=== PATIENT | female | born 1945 | race Caucasian/White ===

== ENCOUNTER 2020-01-21 17:31 | Emergency (ER) | payer MEDICARE, MEDICAID ==
[2020-01-21 17:45] VITALS: BP 175/87; PULSE 113
--- NOTE | 2020-01-21 18:06 | EDM.PDOC ---
ED HPI GENERAL MEDICAL PROBLEM - General Chief Complaint: Respiratory Problem Stated Complaint: WATER AROUND OR LIQUID IN THE RIGHT LUNG Time Seen by Provider: 01/21/20 17:50 Source of Information: Reports: Patient History Limitations: Reports: No Limitations - History of Present Illness INITIAL COMMENTS - FREE TEXT/NARRATIVE: This 74 yo female patient was sent to the ED from the Clinic. The patient reports she was advised to come to the ED from her provider. The provider did not call the ED with a report. The patient reports she has had increased difficulties breathing over the past month, but the past week her breathing has gotten much worse. Review of the patient's x-ray reveals opacification of the right lower lower lobe. The patient reports she has been a long time smoker and is currently trying to quit smoking. Onset: Unknown/Unsure Duration: Week(s):, Constant, Getting Worse Location: Reports: Chest Quality: Reports: Other Severity: Moderate Improves with: Reports: Rest Worsens with: Reports: Movement Associated Symptoms: Reports: Shortness of Breath Right Pain Score (Numeric/FACES): 8 - Related Data Allergies Allergy/AdvReac Type Severity Reaction Status Date / Time No Known Allergies Allergy Verified 01/21/20 17:45 Home Meds: Home Meds Amitriptyline [Elavil] 25 mg PO BEDTIME 04/09/14 [History] Gabapentin [Neurontin] 300 mg PO BEDTIME 12/23/17 [History] Melatonin 10 mg PO BEDTIME 12/23/17 [History] Acetaminophen [Tylenol Extra Strength] 650 mg PO BID 12/31/18 [History] Cholecalciferol (Vitamin D3) [Vitamin D3] 3,000 units PO DAILY 12/31/18 [History ] Esomeprazole Magnesium [Nexium] 20 mg PO DAILY 12/31/18 [History] Fluticasone/Vilanterol [Breo Ellipta 100-25 MCG Inhalation Kit] 1 puff INH DAILY 12/31/18 [History] Gabapentin [Neurontin] 100 mg PO BEDTIME 12/31/18 [History] Glycopyrrolate/Formoterol Fum [Bevespi Aerosphere Inhaler] 2 puff INH BID [History] Ipratropium/Albuterol Sulfate [Iprat-Albut 0.5-3(2.5) mg/3 ml] 3 ml INH Q4H PRN 12/31/18 [History] Naproxen Sodium [Aleve] 200 mg PO BID 01/21/20 [History] Past Medical History HEENT History: Reports: None Cardiovascular History: Reports: None Respiratory History: Reports: COPD Gastrointestinal History: Reports: GERD Genitourinary History: Reports: None [employer]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 SHE STATES HER RIBS EASILY DISPLACE EASILY DUE TO HER CONDITION Neurological History: Reports: None Psychiatric History: Reports: Anxiety, Panic Attack, Other (See Below) Other Psychiatric History: insomnia Endocrine/Metabolic History: Reports: None Hematologic History: Reports: None Immunologic History: Reports: None Oncologic (Cancer) History: Reports: None Dermatologic History: Reports: Psoriasis - Infectious Disease History Infectious Disease History: Reports: Chicken Pox, Measles, Mumps, Shingles - Past Surgical History HEENT Surgical History: Reports: Cataract Surgery, Tonsillectomy Cardiovascular Surgical History: Reports: Carotid Endarterectomy, Other (See Below) Other Cardiovascular Surgeries/Procedures: Left heart cath. Cardiac stress test GI Surgical History: Reports: Appendectomy, Hernia Repair/Other Female Surgical History: Reports: Section, Tubal Ligation Musculoskeletal Surgical History: Reports: Hip Replacement Social & Family History - Family History Cardiac: Reports: Hypertension Musculoskeletal: Reports: Arthritis Neurological: Reports: CVA Psychiatric: Reports: Other (See Below) Other Psychiatric Family History: Alzheimers Endocrine/Metabolic: Reports: Diabetes, type II, Osteoporosis - Tobacco Use Smoking Status *Q: Current Every Day Smoker Years of Tobacco use: 50 Packs/Tins Daily: 0.5 Second Hand Smoke Exposure: No - Caffeine Use Caffeine Use: Reports: Tea Caffeine Use Comment: 12 cups daily - Recreational Drug Use Recreational Drug Use: No ED ROS GENERAL - Review of Systems Review Of Systems: Comprehensive ROS is negative, except as noted in HPI. ED EXAM, GENERAL - Physical Exam Exam: See Below Exam Limited By: No Limitations General Appearance: Alert, WD/WN, Moderate Distress, Thin Eye Exam: Bilateral Eye: EOMI, Normal Inspection, PERRL Ears: Normal External Exam, Normal Canal, Hearing Grossly Normal, Normal TMs Nose: Normal Inspection, Normal Mucosa, No Blood Throat/Mouth: Normal Inspection, Normal Lips, Normal Teeth, Normal Gums, Normal Oropharynx, Normal Voice, No Airway Compromise Head: Atraumatic, Normocephalic Neck: Normal Inspection, Supple, Non-Tender, Full Range of Motion Respiratory/Chest: Chest Non-Tender, Decreased Breath Sounds (right lower lobe) Cardiovascular: Normal Peripheral Pulses, Regular Rate, Rhythm, No Edema, No Gallop, No JVD, No Murmur, No Rub GI/Abdominal: Normal Bowel Sounds, Soft, Non-Tender, No Organomegaly, No Distention, No Abnormal Bruit, No Mass (Female) Exam: Deferred Rectal (Female) Exam: Deferred Back Exam: Normal Inspection, Full Range of Motion, NT Extremities: Normal Inspection, Normal Range of Motion, Non-Tender, Normal Capillary Refill, No Pedal Edema Neurological: Alert, Oriented, CN II-XII Intact, Normal Cognition, Normal Gait, Normal Reflexes, No Motor/Sensory Deficits Psychiatric: Normal Affect, Normal Mood Skin Exam: Warm, Dry, Intact, Normal Color, No Rash Lymphatic: No Adenopathy Course - Vital Signs Last Recorded V/S: Last Vital Signs Temp 36.6 C 01/21/20 17:38 Pulse 113 H 01/21/20 17:38 Resp 20 01/21/20 17:38 BP 175/87 H 01/21/20 17:38 Pulse Ox 97 01/21/20 17:38 - Orders/Labs/Meds Orders: Active Orders 24 hr Category Date Time Status EKG Documentation Completion [RC] URGENT Care 01/21/20 17:49 Active CULTURE BLOOD [BC] Stat Lab 01/21/20 17:56 Received Labs: Laboratory Tests 01/21/20 01/21/20 01/21/20 Range/Units 17:56 17:56 17:56 WBC 10.5 H (5.0-10.0) 10^3/uL RBC 4.76 (4.2-5.4) 10^6/uL Hgb 14.1 D (12.0-16.0) g/dL Hct 42.3 (37.0-47.0) % MCV 88.9 D (80-100) fL MCH 29.6 (27.0-34.0) pg MCHC 33.3 (33.0-35.0) g/dL Plt Count 394 (150-450) 10^3/uL Neut % (Auto) 91.7 H (42.2-75.2) % Lymph % (Auto) 5.5 L (20.5-50.1) % [place] % (Auto) 2.1 (2-8) % Eos % (Auto) 0.4 L (1.0-3.0) % Baso % (Auto) 0.3 (0.0-1.0) % Sodium 135 (135-145) mmol/L Potassium 4.0 (3.6-5.0) mmol/L Chloride 101 (101-111) mmol/L Carbon Dioxide 24.0 (21.0-31.0) mmol/L Anion Gap 14.0 BUN 12 (7-18) mg/dL Creatinine 0.8 (0.6-1.3) mg/dL Est Cr Clr Drug Dosing 40.63 mL/min Estimated GFR (MDRD) > 60 BUN/Creatinine Ratio 15.00 Glucose 136 H (74-105) mg/dL Lactic Acid 1.5 (0.5-2.0) mmol/L Calcium 9.0 (8.4-10.2) mg/dl Total Bilirubin 0.7 (0.2-1.0) mg/dL AST 24 (10-42) IU/L ALT 18 (10-60) IU/L Alkaline Phosphatase 125 H (42-121) IU/L Troponin I 0.02 (0.00-0.02) ng/ml B-Natriuretic Peptide 56 (0-100) pg/ml Total Protein 7.0 (6.7-8.2) g/dl Albumin 4.0 (3.2-5.5) g/dl Globulin 3.0 Albumin/Globulin Ratio 1.33 Meds: Medications Discontinued Medications Generic Name Dose Route Start Last Admin Trade Name Freq PRN Reason Stop Dose Admin Lorazepam 1 mg 01/21/20 19:33 01/21/20 19:41 Ativan IVPUSH 01/21/20 19:34 1 mg ONETIME ONE Administration Departure - Departure Time of Disposition: 19:30 Disposition: DC/Tfer to Acute Hospital 02 Condition: Serious Clinical Impression: Pleural effusion, right - Discharge Information *PRESCRIPTION DRUG MONITORING PROGRAM REVIEWED*: Not Applicable *COPY OF PRESCRIPTION DRUG MONITORING REPORT IN PATIENT DANIELA: Not Applicable Referrals: Sera,Wendi J, PA-C [Primary Care Provider] - Care Plan Goals: Discussed the patient's history, examination, lab and x-ray results with Dr. Vera. Dr. Vera accepted the patient for continued evaluation and management as an inpatient at in [place]. The patient will be transported by [facility]. Sepsis Event Note - Evaluation Sepsis Screening Result: No Definite Risk - Focused Exam Date Exam was Performed: 01/22/20 Time Exam was Performed: 07:02 - My Orders Last 24 Hours: My Active Orders 01/21/20 17:49 EKG Documentation Completion [RC] URGENT 01/21/20 17:56 CULTURE BLOOD [BC] Stat - Assessment/Plan Last 24 Hours: My Active Orders 01/21/20 17:49 EKG Documentation Completion [RC] URGENT 01/21/20 17:56 CULTURE BLOOD [BC] Stat
[2020-01-21 18:22] LABS: CHLORIDE,CL 101 mmol/L (101-111); SODIUM,NA 135 mmol/L (135-145)
[2020-01-21] MEDS ORDERED: LORazepam 2 MG/ML SDV IVPUSH ONE (19:33)
== END 2020-01-21 20:08 ==
LOC: DL.ED 17:31
DX: J90 Pleural effusion, not elsewhere classified (principal); F17.210 Nicotine dependence, cigarettes, uncomplicated; J44.9 Chronic obstructive pulmonary disease, unspecified; K21.9 Gastro-esophageal reflux disease without esophagitis; F41.9 Anxiety disorder, unspecified; Z79.899 Other long term (current) drug therapy
CPT/HCPCS: 36415; 80053; 83605; 83880; 84484; 85025; 87040; 93005; 96374; 99285; J2060

== ENCOUNTER 2020-01-23 15:38 | Emergency (ER) | payer MEDICARE, MEDICAID ==
[2020-01-23] MEDS ORDERED: Acetaminophen/HYDROcodone 325-5 MG Tab PO ONE ×2 (15:39→16:53)
[2020-01-23 16:11] VITALS: BP 164/80; PULSE 102
--- NOTE | 2020-01-23 16:35 | EDM.PDOC ---
ED HPI GENERAL MEDICAL PROBLEM - General Chief Complaint: Respiratory Problem Stated Complaint: TROUBLE BREATHING Time Seen by Provider: 01/23/20 16:00 Source of Information: Reports: Patient History Limitations: Reports: No Limitations - History of Present Illness INITIAL COMMENTS - FREE TEXT/NARRATIVE: ED with c/o right lower anterior chest pain, SOB, Lung drained in [place] yesterday then home. Fine until today then intermitent sharp right chest pain, Daughter concerned no CXR done after procedure. Scheduled follow up with PCP on Saturday and procedure/bx on . Unknown cause of fluid but was told not from bacterial. Right Upper Abdomen Pain Score (Numeric/FACES): 10 - Related Data Allergies Allergy/AdvReac Type Severity Reaction Status Date / Time No Known Allergies Allergy Verified 01/23/20 15:53 Home Meds: Home Meds Amitriptyline [Elavil] 25 mg PO BEDTIME 04/09/14 [History] Gabapentin [Neurontin] 300 mg PO BEDTIME 12/23/17 [History] Melatonin 10 mg PO BEDTIME 12/23/17 [History] Acetaminophen [Tylenol Extra Strength] 650 mg PO BID 12/31/18 [History] Cholecalciferol (Vitamin D3) [Vitamin D3] 3,000 units PO DAILY 12/31/18 [History ] Esomeprazole Magnesium [Nexium] 20 mg PO DAILY 12/31/18 [History] Fluticasone/Vilanterol [Breo Ellipta 100-25 MCG Inhalation Kit] 1 puff INH DAILY 12/31/18 [History] Gabapentin [Neurontin] 100 mg PO BEDTIME 12/31/18 [History] Glycopyrrolate/Formoterol Fum [Bevespi Aerosphere Inhaler] 2 puff INH BID [History] Ipratropium/Albuterol Sulfate [Iprat-Albut 0.5-3(2.5) mg/3 ml] 3 ml INH Q4H PRN 12/31/18 [History] Naproxen Sodium [Aleve] 200 mg PO BID 01/21/20 [History] Past Medical History HEENT History: Reports: None Cardiovascular History: Reports: None Respiratory History: Reports: COPD Gastrointestinal History: Reports: GERD Genitourinary History: Reports: None [employer]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 SHE STATES HER RIBS EASILY DISPLACE EASILY DUE TO HER CONDITION Neurological History: Reports: None Psychiatric History: Reports: Anxiety, Panic Attack, Other (See Below) Other Psychiatric History: insomnia Endocrine/Metabolic History: Reports: None Hematologic History: Reports: None Immunologic History: Reports: None Oncologic (Cancer) History: Reports: None Dermatologic History: Reports: Psoriasis - Infectious Disease History Infectious Disease History: Reports: Chicken Pox, Measles, Mumps, Shingles - Past Surgical History HEENT Surgical History: Reports: Cataract Surgery, Tonsillectomy Cardiovascular Surgical History: Reports: Carotid Endarterectomy, Other (See Below) Other Cardiovascular Surgeries/Procedures: Left heart cath. Cardiac stress test GI Surgical History: Reports: Appendectomy, Hernia Repair/Other Female Surgical History: Reports: Section, Tubal Ligation Musculoskeletal Surgical History: Reports: Hip Replacement Social & Family History - Family History Cardiac: Reports: Hypertension Musculoskeletal: Reports: Arthritis Neurological: Reports: CVA Psychiatric: Reports: Other (See Below) Other Psychiatric Family History: Alzheimers Endocrine/Metabolic: Reports: Diabetes, type II, Osteoporosis - Caffeine Use Caffeine Use: Reports: Tea Caffeine Use Comment: 12 cups daily ED ROS GENERAL - Review of Systems Review Of Systems: Comprehensive ROS is negative, except as noted in HPI. ED EXAM, GENERAL - Physical Exam Exam: See Below Exam Limited By: No Limitations General Appearance: Alert, Mild Distress, Thin, Cachetic Eye Exam: Bilateral Eye: EOMI Ears: Normal External Exam Nose: Normal Inspection Throat/Mouth: Normal Inspection Head: Atraumatic, Normocephalic Respiratory/Chest: No Respiratory Distress, Lungs Clear, Decreased Breath Sounds (slight right base). No: Respiratory Distress, Rales, Rhonchi, Wheezing , Pleural Rub Cardiovascular: Normal Peripheral Pulses, Regular Rate, Rhythm GI/Abdominal: Normal Bowel Sounds, Soft, Non-Tender Back Exam: Normal Inspection, Full Range of Motion Extremities: Normal Inspection, Normal Range of Motion Neurological: Alert, Oriented, Normal Cognition Psychiatric: Normal Affect Skin Exam: Warm, Dry, Intact, Normal Color, Wound/Incision (thoracentesis site CDI) Course - Vital Signs Last Recorded V/S: Last Vital Signs Temp 98.1 F 01/23/20 15:47 Pulse 102 H 01/23/20 15:47 Resp 22 H 01/23/20 15:47 BP 164/80 H 01/23/20 15:47 Pulse Ox 100 01/23/20 15:47 - Orders/Labs/Meds Orders: Active Orders 24 hr Category Date Time Status EKG 12 Lead [EKG Documentation Completion] [RC] URGENT Care 01/23/20 16:13 Active Labs: Laboratory Tests 01/23/20 01/23/20 01/23/20 Range/Units 17:13 17:13 17:13 WBC 7.9 (5.0-10.0) 10^3/uL RBC 4.88 (4.2-5.4) 10^6/uL Hgb 14.5 (12.0-16.0) g/dL Hct 43.7 (37.0-47.0) % MCV 89.5 (80-100) fL MCH 29.7 (27.0-34.0) pg MCHC 33.2 (33.0-35.0) g/dL Plt Count 401 (150-450) 10^3/uL Neut % (Auto) 69.3 (42.2-75.2) % Lymph % (Auto) 18.7 L (20.5-50.1) % [place] % (Auto) 8.9 H (2-8) % Eos % (Auto) 2.5 (1.0-3.0) % Baso % (Auto) 0.6 (0.0-1.0) % PT (9.0-12.0) SEC INR (0.9-1.2) Sodium 133 L (135-145) mmol/L Potassium 3.8 (3.6-5.0) mmol/L Chloride 96 L (101-111) mmol/L Carbon Dioxide 27.0 (21.0-31.0) mmol/L Anion Gap 13.8 BUN 9 (7-18) mg/dL Creatinine 0.8 (0.6-1.3) mg/dL Est Cr Clr Drug Dosing 38.88 mL/min Estimated GFR (MDRD) > 60 BUN/Creatinine Ratio 11.25 Glucose 93 (74-105) mg/dL Lactic Acid 1.1 (0.5-2.0) mmol/L Calcium 9.1 (8.4-10.2) mg/dl Total Bilirubin 0.4 (0.2-1.0) mg/dL AST 22 (10-42) IU/L ALT 18 (10-60) IU/L Alkaline Phosphatase 123 H (42-121) IU/L Troponin I < 0.02 (0.00-0.02) ng/ml B-Natriuretic Peptide 55 (0-100) pg/ml Total Protein 7.3 (6.7-8.2) g/dl Albumin 4.0 (3.2-5.5) g/dl Globulin 3.3 Albumin/Globulin Ratio 1.21 / Range/Units 17:13 WBC (5.0-10.0) 10^3/uL RBC (4.2-5.4) 10^6/uL Hgb (12.0-16.0) g/dL Hct (37.0-47.0) % MCV (80-100) fL MCH (27.0-34.0) pg MCHC (33.0-35.0) g/dL Plt Count (150-450) 10^3/uL Neut % (Auto) (42.2-75.2) % Lymph % (Auto) (20.5-50.1) % [place] % (Auto) (2-8) % Eos % (Auto) (1.0-3.0) % Baso % (Auto) (0.0-1.0) % PT 9.6 (9.0-12.0) SEC INR 0.9 (0.9-1.2) Sodium (135-145) mmol/L Potassium (3.6-5.0) mmol/L Chloride (101-111) mmol/L Carbon Dioxide (21.0-31.0) mmol/L Anion Gap BUN (7-18) mg/dL Creatinine (0.6-1.3) mg/dL Est Cr Clr Drug Dosing mL/min Estimated GFR (MDRD) BUN/Creatinine Ratio Glucose (74-105) mg/dL Lactic Acid (0.5-2.0) mmol/L Calcium (8.4-10.2) mg/dl Total Bilirubin (0.2-1.0) mg/dL AST (10-42) IU/L ALT (10-60) IU/L Alkaline Phosphatase (42-121) IU/L Troponin I (0.00-0.02) ng/ml B-Natriuretic Peptide (0-100) pg/ml Total Protein (6.7-8.2) g/dl Albumin (3.2-5.5) g/dl Globulin Albumin/Globulin Ratio Meds: Medications Discontinued Medications Generic Name Dose Route Start Last Admin Trade Name Mane PRN Reason Stop Dose Admin Hydrocodone Bitart/Acetaminophen 1 tab 01/23/20 16:53 01/23/20 16:59 Shirley 325-5 Mg PO 01/23/20 16:54 1 tab ONETIME ONE Administration Hydrocodone Bitart/Acetaminophen Confirm 01/23/20 18:03 Shirley 325-5 Mg Administered 01/23/20 18:04 Dose 3 tab .ROUTE .STK-MED ONE - Re-Assessments/Exams Free Text/Narrative Re-Assessment/Exam: 01/23/20 18:10 Pain spasmodic on arrival resolved with pain medication. . Departure - Departure Time of Disposition: 18:06 Disposition: Home, Self-Care 01 Condition: Good Clinical Impression: Hx of pleural effusion - Discharge Information *PRESCRIPTION DRUG MONITORING PROGRAM REVIEWED*: No *COPY OF PRESCRIPTION DRUG MONITORING REPORT IN PATIENT DANIELA: No Referrals: Wendi Zamora PA-C [Primary Care Provider] - Forms: ED Department Discharge Additional Instructions: follow up with PCP Emergent follow up if difficulty breathing, continued pain fever chills. hydrocodone APAP 5/325 one every 6 hours as needed for severe pain Sepsis Event Note - Evaluation Sepsis Screening Result: No Definite Risk - Focused Exam Date Exam was Performed: 01/24/20 Time Exam was Performed: 15:01 - My Orders Last 24 Hours: My Active Orders 01/23/20 16:13 EKG 12 Lead [EKG Documentation Completion] [RC] URGENT - Assessment/Plan Last 24 Hours: My Active Orders 01/23/20 16:13 EKG 12 Lead [EKG Documentation Completion] [RC] URGENT
[2020-01-23 17:54] LABS: ANION GAP 13.8; CHLORIDE,CL 96 mmol/L (101-111); SODIUM,NA 133 mmol/L (135-145)
[2020-01-23] MEDS ORDERED: Acetaminophen/HYDROcodone 325-5 MG Tab ONE (18:03)
== END 2020-01-23 18:26 | disposition home or self-care (01) ==
LOC: DL.ED 15:38
DX: R07.9 Chest pain, unspecified (principal); J44.9 Chronic obstructive pulmonary disease, unspecified; K21.9 Gastro-esophageal reflux disease without esophagitis; F41.0 Panic disorder [episodic paroxysmal anxiety]; Z79.899 Other long term (current) drug therapy
CPT/HCPCS: 36415; 71046; 80053; 83605; 83880; 84484; 85025; 85610; 93005; 99283; 99285; A9270

== ENCOUNTER 2020-03-03 11:18 | Emergency (ER) | payer MEDICARE, MEDICAID ==
--- NOTE | 2020-03-03 11:34 | EDM.PDOC ---
ED HPI GENERAL MEDICAL PROBLEM - General Chief Complaint: General Stated Complaint: very weak Time Seen by Provider: 03/03/20 11:34 Source of Information: Reports: Patient, Old Records, RN, RN Notes Reviewed History Limitations: Reports: No Limitations - History of Present Illness INITIAL COMMENTS - FREE TEXT/NARRATIVE: Pt presents to ER from home by POV with c/o severe generalized weakness, sore throat, and shortness of breath. Pt has lung CA and has completed 2 rounds of chemo and is currently receiving a regimen of radiation therapy. Pt reports feeling hungry, but is unable to eat. She had a right pleural effusion and underwent a thoracentesis at [facility] in 2019. She denies fever, chills, vomiting, diarrhea, constipation, or urinary symptoms. She admits to a chronic productive cough that has been unchanged. Onset: Gradual Duration: Chronic, Constant, Getting Worse Location: Reports: Generalized Severity: Severe Improves with: Reports: None Worsens with: Reports: None Associated Symptoms: Reports: No Other Symptoms - Related Data Allergies Allergy/AdvReac Type Severity Reaction Status Date / Time No Known Allergies Allergy Verified 01/23/20 15:53 Home Meds: Home Meds Amitriptyline [Elavil] 25 mg PO BEDTIME 04/09/14 [History] Gabapentin [Neurontin] 300 mg PO BEDTIME 12/23/17 [History] Melatonin 10 mg PO BEDTIME 12/23/17 [History] Acetaminophen [Tylenol Extra Strength] 650 mg PO BID 12/31/18 [History] Cholecalciferol (Vitamin D3) [Vitamin D3] 3,000 units PO DAILY 12/31/18 [History ] Esomeprazole Magnesium [Nexium] 20 mg PO DAILY 12/31/18 [History] Fluticasone/Vilanterol [Breo Ellipta 100-25 MCG Inhalation Kit] 1 puff INH DAILY 12/31/18 [History] Gabapentin [Neurontin] 100 mg PO BEDTIME 12/31/18 [History] Glycopyrrolate/Formoterol Fum [Bevespi Aerosphere Inhaler] 2 puff INH BID [History] Ipratropium/Albuterol Sulfate [Iprat-Albut 0.5-3(2.5) mg/3 ml] 3 ml INH Q4H PRN 12/31/18 [History] Naproxen Sodium [Aleve] 200 mg PO BID 01/21/20 [History] Past Medical History HEENT History: Reports: None Cardiovascular History: Reports: None Respiratory History: Reports: COPD Other Respiratory History: Plueral Effusion Gastrointestinal History: Reports: GERD Genitourinary History: Reports: None 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 SHE STATES HER RIBS EASILY DISPLACE EASILY DUE TO HER CONDITION Neurological History: Reports: None Psychiatric History: Reports: Anxiety, Panic Attack, Other (See Below) Other Psychiatric History: insomnia Endocrine/Metabolic History: Reports: None Hematologic History: Reports: None Immunologic History: Reports: None Oncologic (Cancer) History: Reports: Lung Dermatologic History: Reports: Psoriasis - Infectious Disease History Infectious Disease History: Reports: Chicken Pox, Measles, Mumps, Shingles - Past Surgical History HEENT Surgical History: Reports: Cataract Surgery, Tonsillectomy Cardiovascular Surgical History: Reports: Carotid Endarterectomy, Other (See Below) Other Cardiovascular Surgeries/Procedures: Left heart cath. Cardiac stress test Respiratory Surgical History: Reports: Thoracentesis GI Surgical History: Reports: Appendectomy, Hernia Repair/Other Female Surgical History: Reports: Section, Tubal Ligation Musculoskeletal Surgical History: Reports: Hip Replacement Social & Family History - Family History Cardiac: Reports: Hypertension Musculoskeletal: Reports: Arthritis Neurological: Reports: CVA Psychiatric: Reports: Other (See Below) Other Psychiatric Family History: Alzheimers Endocrine/Metabolic: Reports: Diabetes, type II, Osteoporosis - Caffeine Use Caffeine Use: Reports: Tea Caffeine Use Comment: 12 cups daily - Living Situation & Occupation Living situation: Reports: with Family Occupation: Retired ED ROS GENERAL - Review of Systems Review Of Systems: Comprehensive ROS is negative, except as noted in HPI. ED EXAM, GENERAL - Physical Exam Exam: See Below Exam Limited By: No Limitations General Appearance: Alert, No Apparent Distress, Thin, Cachetic Eye Exam: Bilateral Eye: Normal Inspection Nose: Normal Inspection Throat/Mouth: Normal Lips, Normal Voice, No Airway Compromise Head: Atraumatic, Normocephalic Neck: Normal Inspection, Supple, Non-Tender, Full Range of Motion Respiratory/Chest: No Respiratory Distress, No Accessory Muscle Use, Decreased Breath Sounds (Rt lower lung field.), Crackles (Coarse breath sounds). No: Rhonchi, Wheezing, Stridor Cardiovascular: Regular Rate, Rhythm GI/Abdominal: Normal Bowel Sounds, Soft, Non-Tender Extremities: Normal Range of Motion, Pedal Edema Neurological: Alert, Oriented, No Motor/Sensory Deficits Psychiatric: Depressed Mood, Flat Affect Skin Exam: Warm, Dry, Intact Course - Vital Signs Last Recorded V/S: Last Vital Signs Temp 98.9 F 03/03/20 12:18 Pulse 81 03/03/20 12:18 Resp 18 03/03/20 12:18 BP 124/68 03/03/20 12:18 Pulse Ox 99 03/03/20 12:18 - Orders/Labs/Meds Orders: Active Orders 24 hr Category Date Time Status Chest 1V Frontal [CR] Stat Exams 03/03/20 11:35 Taken CULTURE BLOOD [BC] Stat Lab 03/03/20 11:45 Received CULTURE BLOOD [BC] Stat Lab 03/03/20 11:55 Received CULTURE STREP A CONFIRMATION [RM] Stat Lab 03/03/20 12:00 Results STREP SCRN A RAPID W CULT CONF [RM] Stat Lab 03/03/20 12:00 Results Sodium Chloride 0.9% [Normal Saline] 250 ml Med 03/03/20 12:30 Active IV ASDIRECTED Blood Culture x2 Reflex Set [OM.PC] Stat Oth 03/03/20 11:36 Ordered Isolation [COMM] Routine Oth 03/03/20 11:37 Active Medication Orders Sodium Chloride (Normal Saline) 250 mls @ 500 mls/hr IV ASDIRECTED [facility] Labs: Laboratory Tests 03/03/20 03/03/20 03/03/20 Range/Units 11:45 11:45 11:45 WBC 9.3 (5.0-10.0) 10^3/uL RBC 3.76 L (4.2-5.4) 10^6/uL Hgb 11.2 L D (12.0-16.0) g/dL Hct 33.8 L (37.0-47.0) % MCV 89.9 (80-100) fL MCH 29.8 (27.0-34.0) pg MCHC 33.1 (33.0-35.0) g/dL Plt Count 701 H D (150-450) 10^3/uL Neut % (Auto) 94.6 H (42.2-75.2) % Lymph % (Auto) 4.6 L (20.5-50.1) % Park % (Auto) 0.4 L (2-8) % Eos % (Auto) 0.3 L (1.0-3.0) % Baso % (Auto) 0.1 (0.0-1.0) % Sodium 132 L (136-145) mmol/L Potassium 3.5 (3.5-5.1) mmol/L Chloride 92 L (98-107) mmol/L Carbon Dioxide 31 (21-32) mmol/L Anion Gap 12.5 (7-13) mEq/L BUN 22 H (7-18) mg/dL Creatinine 0.86 (0.55-1.02) mg/dL Est Cr Clr Drug Dosing TNP Estimated GFR (MDRD) > 60 BUN/Creatinine Ratio 25.6 (No establ ref range) Glucose 151 H (74-99) mg/dL Lactic Acid 1.7 (0.4-2.0) mmol/L Calcium 8.4 L (8.5-10.1) mg/dL Total Bilirubin 0.3 (0.2-1.0) mg/dL AST 24 (15-37) U/L ALT 32 (14-59) U/L Alkaline Phosphatase 166 H (46-116) U/L B-Natriuretic Peptide (0-100) pg/ml Total Protein 6.0 L (6.4-8.2) g/dL Albumin 2.5 L (3.4-5.0) g/dL Globulin 3.5 Albumin/Globulin Ratio 0.71 Urine Color (YELLOW) Urine Appearance (CLEAR) Urine pH (5.0-9.0) Ur Specific [place] (1.005-1.030) Urine Protein (NEGATIVE) Urine Glucose (UA) (NEGATIVE) Urine Ketones (NEGATIVE) Urine Occult Blood (NEGATIVE) Urine Nitrite (NEGATIVE) Urine Bilirubin (NEGATIVE) Urine Urobilinogen (0.2-1.0) mg/dL Ur Leukocyte Esterase (NEGATIVE) 03/03/20 03/03/20 Range/Units 11:45 12:13 WBC (5.0-10.0) 10^3/uL RBC (4.2-5.4) 10^6/uL Hgb (12.0-16.0) g/dL Hct (37.0-47.0) % MCV (80-100) fL MCH (27.0-34.0) pg MCHC (33.0-35.0) g/dL Plt Count (150-450) 10^3/uL Neut % (Auto) (42.2-75.2) % Lymph % (Auto) (20.5-50.1) % Park % (Auto) (2-8) % Eos % (Auto) (1.0-3.0) % Baso % (Auto) (0.0-1.0) % Sodium (136-145) mmol/L Potassium (3.5-5.1) mmol/L Chloride (98-107) mmol/L Carbon Dioxide (21-32) mmol/L Anion Gap (7-13) mEq/L BUN (7-18) mg/dL Creatinine (0.55-1.02) mg/dL Est Cr Clr Drug Dosing Estimated GFR (MDRD) BUN/Creatinine Ratio (No establ ref range) Glucose (74-99) mg/dL Lactic Acid (0.4-2.0) mmol/L Calcium (8.5-10.1) mg/dL Total Bilirubin (0.2-1.0) mg/dL AST (15-37) U/L ALT (14-59) U/L Alkaline Phosphatase (46-116) U/L B-Natriuretic Peptide 58 (0-100) pg/ml Total Protein (6.4-8.2) g/dL Albumin (3.4-5.0) g/dL Globulin Albumin/Globulin Ratio Urine Color Yellow (YELLOW) Urine Appearance Clear (CLEAR) Urine pH 7.0 (5.0-9.0) Ur Specific [place] 1.020 (1.005-1.030) Urine Protein Negative (NEGATIVE) Urine Glucose (UA) Negative (NEGATIVE) Urine Ketones Negative (NEGATIVE) Urine Occult Blood Negative (NEGATIVE) Urine Nitrite Negative (NEGATIVE) Urine Bilirubin Negative (NEGATIVE) Urine Urobilinogen 0.2 (0.2-1.0) mg/dL Ur Leukocyte Esterase Negative (NEGATIVE) Meds: Medications Generic Name Dose Route Start Last Admin Trade Name Freq PRN Reason Stop Dose Admin Sodium Chloride 250 mls @ 500 mls/hr 03/03/20 12:30 Normal Saline IV ASDIRECTED MADY Discontinued Medications Generic Name Dose Route Start Last Admin Trade Name Mane PRN Reason Stop Dose Admin Fluconazole 200 mg 03/03/20 12:26 Diflucan PO 03/03/20 12:27 ONETIME ONE Nystatin 5 ml 03/03/20 12:26 Mycostatin PO 03/03/20 12:27 ONETIME ONE - Radiology Interpretation Free Text/Narrative:: [facility] Final Radiology Report Call: [phone] assistance Online chat: [email or web address] Name: LORIE MONTALVO Age: 74Years F Date: 03/03/2020 SSN: -- : [id number] Study: XR CHEST 1 VIEW FRONTAL Requesting Physician: JANET GAY Images: 1 Addl Studies: Provided Clinical History: cough, weakness, lung ca Contrast: Contrast Medium: Contrast Amount: Contrast Method: CONFIDENTIALITY STATEMENT This report is intended only for use by the referring physician, and only in accordance with law. If you received this in error, call [phone]. Page 1 of 1 PROCEDURE INFORMATION: Exam: XR Chest, 1 View Exam date and time: 03/03/2020 12:15 PM Age: 74 years old Clinical indication: Cough; Additional info: Cough, weakness, lung CA TECHNIQUE: Imaging protocol: XR of the chest Views: 1 view. COMPARISON: CR Chest 1V Frontal 01/23/2020 5:01 PM FINDINGS: Tubes, catheters and devices: Right central venous catheter tip in the superior vena cava. Lungs: Right lower lung opacity. Pleural space: Loculated or partially loculated right pleural effusion appearing since 01/23/2020. Heart/Mediastinum: Unremarkable. No cardiomegaly. Bones/joints: Scoliosis. IMPRESSION: Interval development of a loculated or partially loculated right pleural effusion. Thank you for allowing us to participate in the care of your patient. Dictated and Authenticated by: Toby Valentin MD 03/03/2020 12:28 PM Central Time ([place] & [place]) Departure - Departure Time of Disposition: 13:15 Disposition: Home, Self-Care 01 Condition: Fair Clinical Impression: Candidiasis of mouth and esophagus, Generalized weakness, History of lung cancer - Discharge Information *PRESCRIPTION DRUG MONITORING PROGRAM REVIEWED*: Not Applicable *COPY OF PRESCRIPTION DRUG MONITORING REPORT IN PATIENT DANIELA: Not Applicable Instructions: Oral Thrush, Adult, [id number] Forms: ED Department Discharge Additional Instructions: Rx: Diflucan 100mg Follow up with your doctor in 3 to 5 days for recheck. Sepsis Event Note - Focused Exam Vital Signs: Vital Signs Temp Pulse Resp BP Pulse Ox 03/03/20 12:18 98.9 F 81 18 124/68 99 Date Exam was Performed: 03/03/20 Time Exam was Performed: 13:13 - My Orders Last 24 Hours: My Active Orders 03/03/20 11:35 Chest 1V Frontal [CR] Stat 03/03/20 11:36 Blood Culture x2 Reflex Set [OM.PC] Stat 03/03/20 11:37 Isolation [COMM] Routine 03/03/20 11:45 CULTURE BLOOD [BC] Stat 03/03/20 11:55 CULTURE BLOOD [BC] Stat 03/03/20 12:00 CULTURE STREP A CONFIRMATION [RM] Stat STREP SCRN A RAPID W CULT CONF [RM] Stat 03/03/20 12:30 Sodium Chloride 0.9% [Normal Saline] 250 ml IV ASDIRECTED - Assessment/Plan Last 24 Hours: My Active Orders 03/03/20 11:35 Chest 1V Frontal [CR] Stat 03/03/20 11:36 Blood Culture x2 Reflex Set [OM.PC] Stat 03/03/20 11:37 Isolation [COMM] Routine 03/03/20 11:45 CULTURE BLOOD [BC] Stat 03/03/20 11:55 CULTURE BLOOD [BC] Stat 03/03/20 12:00 CULTURE STREP A CONFIRMATION [RM] Stat STREP SCRN A RAPID W CULT CONF [RM] Stat 03/03/20 12:30 Sodium Chloride 0.9% [Normal Saline] 250 ml IV ASDIRECTED
[2020-03-03 12:10] LABS: ANION GAP 12.5 mEq/L (7-13); CHLORIDE,CL 92 mmol/L (98-107); SODIUM,NA 132 mmol/L (136-145)
[2020-03-03 12:25] VITALS: BP 124/68; PULSE 81
[2020-03-03] MEDS ORDERED: Nystatin Susp 100,000 Unit/ML 5 ML UD Cup PO ONE (12:26)
[2020-03-03] MEDS ORDERED: Fluconazole 100 MG Tab PO ONE (12:26)
[2020-03-03] MEDS ORDERED: Sodium Chloride 0.9% 250 ML IV SCH (12:30)
== END 2020-03-03 13:40 | disposition home or self-care (01) ==
LOC: DL.ED 11:18
DX: B37.0 Candidal stomatitis (principal); R53.1 Weakness; Z85.118 Personal history of other malignant neoplasm of bronchus and lung; R60.0 Localized edema; R06.02 Shortness of breath
CPT/HCPCS: 36415; 71045; 80053; 81003; 83605; 83880; 85025; 87040; 87081; 87430; 87804; 96360; 99283; 99285; A9270; J1642; J7050

== ENCOUNTER 2020-03-13 17:00 | Observation (INO) | payer MEDICARE, MEDICAID ==
--- NOTE | 2020-03-13 17:44 | EDM.PDOC ---
<KhouryRony Luis - Last Filed: 03/13/20 17:38> ED HPI GENERAL MEDICAL PROBLEM - General Stated Complaint: AMBULANCE Time Seen by Provider: 03/13/20 17:35 Source of Information: Reports: Patient History Limitations: Reports: No Limitations - History of Present Illness INITIAL COMMENTS - FREE TEXT/NARRATIVE: This 74 yo female patient reports to the ED due to possible dehydration, constipation, left calf pain and right thigh pain. The patient reports her symptoms started today and have been getting worse this afternoon. The patient has a history of lung cancer. The patient is currently under the treatment of Dr. Jose and is receiving both chemo and radiation treatment. The patient reports her last radiation treatment was last week. The patient reports no similar symptoms in the past with treatments. The patient reports she has been eating and drinking normally. The patient reports she had several hard bowel movements today, but reports the intermittent leg pain is currently rated at a 8 -9/10. Onset: Today Duration: Constant, Getting Worse Location: Reports: Abdomen, Lower Extremity, Left, Lower Extremity, Right Quality: Reports: Other Severity: Severe Improves with: Reports: None Worsens with: Reports: None Context: Reports: Other Associated Symptoms: Reports: No Other Symptoms Generalized Pain Score (Numeric/FACES): 8 - Related Data Allergies Allergy/AdvReac Type Severity Reaction Status Date / Time No Known Allergies Allergy Verified 03/07/20 15:56 Home Meds: Home Meds Amitriptyline [Elavil] 50 mg PO BEDTIME 04/09/14 [History] Gabapentin [Neurontin] 300 mg PO BEDTIME 12/23/17 [History] Melatonin 5 mg PO BEDTIME 12/23/17 [History] Acetaminophen [Tylenol Extra Strength] 650 mg PO BID PRN 12/31/18 [History] Cholecalciferol (Vitamin D3) [Vitamin D3] 3,000 units PO DAILY 12/31/18 [History ] Esomeprazole Magnesium [Nexium] 20 mg PO DAILY 12/31/18 [History] Fluticasone/Vilanterol [Breo Ellipta 100-25 MCG Inhalation Kit] 1 puff INH DAILY 12/31/18 [History] Gabapentin [Neurontin] 100 mg PO BEDTIME 12/31/18 [History] Ipratropium/Albuterol Sulfate [Iprat-Albut 0.5-3(2.5) mg/3 ml] 3 ml INH Q4H PRN 12/31/18 [History] Naproxen Sodium [Aleve] 220 mg PO BID PRN 01/21/20 [History] Albuterol [Ventolin HFA] 2 puff INH Q4HR 03/07/20 [History] Diphenhyd/Lidocaine/Nystatin [First-Bxn Mouthwash] 5 - 10 ml MM QID PRN [History] Fluconazole [Diflucan] 100 mg PO DAILY 03/07/20 [History] Furosemide 20 mg PO ASDIRECTED 03/07/20 [History] Hydrocodone/Acetaminophen [Hydrocodon-Acetaminophen 5-325] 0.5 - 1 tab PO Q4HR PRN 03/07/20 [History] Ondansetron [Zofran] 8 mg PO Q8HR PRN 03/07/20 [History] Prochlorperazine [Compazine] 10 mg PO Q6HR PRN 03/07/20 [History] Spironolactone 50 mg PO DAILY 03/07/20 [History] Folic Acid 1 mg PO DAILY 03/13/20 [History] Nystatin [Mycostatin] 5 ml PO QID 03/13/20 [History] Past Medical History HEENT History: Reports: None, Other (See Below) Other HEENT History: thrush Cardiovascular History: Reports: None Respiratory History: Reports: COPD Other Respiratory History: Plueral Effusion Gastrointestinal History: Reports: GERD Genitourinary History: Reports: None 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 SHE STATES HER RIBS EASILY DISPLACE EASILY DUE TO HER CONDITION Neurological History: Reports: None Psychiatric History: Reports: Anxiety, Panic Attack, Other (See Below) Other Psychiatric History: insomnia Endocrine/Metabolic History: Reports: None Hematologic History: Reports: None Immunologic History: Reports: None Oncologic (Cancer) History: Reports: Lung Dermatologic History: Reports: Psoriasis - Infectious Disease History Infectious Disease History: Reports: Chicken Pox, Shingles - Past Surgical History HEENT Surgical History: Reports: Cataract Surgery, Tonsillectomy Cardiovascular Surgical History: Reports: Carotid Endarterectomy, Other (See Below) Other Cardiovascular Surgeries/Procedures: Left heart cath. Cardiac stress test Respiratory Surgical History: Reports: Thoracentesis GI Surgical History: Reports: Appendectomy, Hernia Repair/Other Female Surgical History: Reports: Section, Tubal Ligation Musculoskeletal Surgical History: Reports: Hip Replacement Social & Family History - Family History Cardiac: Reports: Hypertension Musculoskeletal: Reports: Arthritis Neurological: Reports: CVA Psychiatric: Reports: Other (See Below) Other Psychiatric Family History: Alzheimers Endocrine/Metabolic: Reports: Diabetes, type II, Osteoporosis - Caffeine Use Caffeine Use: Reports: Tea Caffeine Use Comment: 12 cups daily - Living Situation & Occupation Living situation: Reports: with Family Occupation: Retired ED ROS GENERAL - Review of Systems Review Of Systems: Comprehensive ROS is negative, except as noted in HPI. ED EXAM, GENERAL - Physical Exam Exam: See Below Exam Limited By: No Limitations General Appearance: Alert, WD/WN, Moderate Distress, Thin Eye Exam: Bilateral Eye: EOMI, Normal Inspection, PERRL Ears: Normal External Exam, Normal Canal, Hearing Grossly Normal, Normal TMs Nose: Normal Inspection, Normal Mucosa, No Blood Throat/Mouth: Normal Inspection, Normal Lips, Normal Oropharynx, Normal Voice, No Airway Compromise, Other (dry) Head: Atraumatic, Normocephalic Neck: Normal Inspection, Supple, Non-Tender, Full Range of Motion Respiratory/Chest: No Respiratory Distress, Lungs Clear, Normal Breath Sounds, No Accessory Muscle Use, Chest Non-Tender Cardiovascular: Normal Peripheral Pulses, Regular Rate, Rhythm, No Edema, No Gallop, No JVD, No Murmur, No Rub GI/Abdominal: Tender (diffuse abdominal tenderness) (Female) Exam: Deferred Rectal (Female) Exam: Deferred Back Exam: Normal Inspection, Full Range of Motion, NT Extremities: Leg Pain (diffuse right thigh pain (no apparent signs of trauma, bruising or deformity), diffuse left calf pain (no signs of trauma, bruising or deformity). The patient reports her pain feels like leg cramps. ) Neurological: Alert, Oriented, CN II-XII Intact, Normal Cognition Psychiatric: Normal Affect, Normal Mood Skin Exam: Warm, Dry, Intact, Normal Color, No Rash Lymphatic: No Adenopathy Course - Vital Signs Last Recorded V/S: Last Vital Signs Temp 36.9 C 03/13/20 17:33 Pulse 118 H 04/19/20 17:33 Resp 20 03/13/20 17:33 BP 133/73 03/13/20 17:33 Pulse Ox 98 03/13/20 17:33 - Orders/Labs/Meds Orders: Active Orders 24 hr Category Date Time Status EKG Documentation Completion [RC] STAT Care 03/13/20 20:38 Active CULTURE BLOOD [BC] Stat Lab 03/13/20 17:40 Received UA RFX VALENTE AND CULT IF INDIC [URIN] Urgent Lab 03/13/20 17:25 Ordered Labs: Laboratory Tests 03/13/20 03/13/20 03/13/20 Range/Units 17:40 17:40 17:40 WBC 2.0 L (5.0-10.0) 10^3/uL RBC 2.86 L (4.2-5.4) 10^6/uL Hgb 8.5 L D (12.0-16.0) g/dL Hct 25.0 L (37.0-47.0) % MCV 87.4 (80-100) fL MCH 29.7 (27.0-34.0) pg MCHC 34.0 (33.0-35.0) g/dL Plt Count 91 L D (150-450) 10^3/uL Neut % (Auto) 49.3 (42.2-75.2) % Lymph % (Auto) 21.8 (20.5-50.1) % Weber % (Auto) 27.9 H (2-8) % Eos % (Auto) 1.0 (1.0-3.0) % Baso % (Auto) 0.0 (0.0-1.0) % Add Manual Diff Yes Neutrophils % (Manual) 14 L (42-75) % Band Neutrophils % 14 % Lymphocytes % (Manual) 48 (20-50) % Monocytes % (Manual) 13 H (2-8) % Eosinophils % (Manual) 1 (1-3) % Metamyelocytes % 5 Blast Cells % 5 Nucleated RBCs 2 /100WBC Microcytosis 1+ slight Sodium 127 L (136-145) mmol/L Potassium 4.1 (3.5-5.1) mmol/L Chloride 88 L (98-107) mmol/L Carbon Dioxide 27 (21-32) mmol/L Anion Gap 16.1 H (7-13) mEq/L BUN 34 H (7-18) mg/dL Creatinine 1.64 H (0.55-1.02) mg/dL Est Cr Clr Drug Dosing 18.59 mL/min Estimated GFR (MDRD) 31 BUN/Creatinine Ratio 20.7 (No establ ref range) Glucose 79 (74-99) mg/dL Lactic Acid 1.2 (0.4-2.0) mmol/L Calcium 8.3 L (8.5-10.1) mg/dL Total Bilirubin 0.5 (0.2-1.0) mg/dL AST 30 (15-37) U/L ALT 63 H (14-59) U/L Alkaline Phosphatase 306 H (46-116) U/L Troponin I (0.000-0.056) ng/mL B-Natriuretic Peptide 142 H (0-100) pg/ml Total Protein 5.9 L (6.4-8.2) g/dL Albumin 1.7 L (3.4-5.0) g/dL Globulin 4.2 Albumin/Globulin Ratio 0.40 Amylase 14 L (25-115) U/L Lipase 48 L (73-393) U/L // Range/Units 17:40 WBC (5.0-10.0) 10^3/uL RBC (4.2-5.4) 10^6/uL Hgb (12.0-16.0) g/dL Hct (37.0-47.0) % MCV (80-100) fL MCH (27.0-34.0) pg MCHC (33.0-35.0) g/dL Plt Count (150-450) 10^3/uL Neut % (Auto) (42.2-75.2) % Lymph % (Auto) (20.5-50.1) % Weber % (Auto) (2-8) % Eos % (Auto) (1.0-3.0) % Baso % (Auto) (0.0-1.0) % Add Manual Diff Neutrophils % (Manual) (42-75) % Band Neutrophils % % Lymphocytes % (Manual) (20-50) % Monocytes % (Manual) (2-8) % Eosinophils % (Manual) (1-3) % Metamyelocytes % Blast Cells % Nucleated RBCs /100WBC Microcytosis Sodium (136-145) mmol/L Potassium (3.5-5.1) mmol/L Chloride (98-107) mmol/L Carbon Dioxide (21-32) mmol/L Anion Gap (7-13) mEq/L BUN (7-18) mg/dL Creatinine (0.55-1.02) mg/dL Est Cr Clr Drug Dosing mL/min Estimated GFR (MDRD) BUN/Creatinine Ratio (No establ ref range) Glucose (74-99) mg/dL Lactic Acid (0.4-2.0) mmol/L Calcium (8.5-10.1) mg/dL Total Bilirubin (0.2-1.0) mg/dL AST (15-37) U/L ALT (14-59) U/L Alkaline Phosphatase (46-116) U/L Troponin I < 0.017 (0.000-0.056) ng/mL B-Natriuretic Peptide (0-100) pg/ml Total Protein (6.4-8.2) g/dL Albumin (3.4-5.0) g/dL Globulin Albumin/Globulin Ratio Amylase (25-115) U/L Lipase (73-393) U/L Meds: Medications Discontinued Medications Generic Name Dose Route Start Last Admin Trade Name Freq PRN Reason Stop Dose Admin Hydromorphone HCl 1 mg 03/13/20 18:56 03/13/20 19:00 Dilaudid IVPUSH 03/13/20 18:57 1 mg ONETIME ONE Administration Sodium Chloride 1,000 mls @ 999 mls/hr 03/13/20 17:48 03/13/20 17:52 Normal Saline IV 03/13/20 18:48 999 mls/hr .BOLUS ONE Administration Morphine Sulfate 2 mg 03/13/20 18:08 03/13/20 18:14 Morphine IVPUSH 03/13/20 18:09 2 mg ONETIME ONE Administration Departure - Departure Disposition: Refer to Observation Clinical Impression: Leg pain, bilateral, Dehydration syndrome, Pancytopenia due to chemotherapy Abdominal pain Qualifiers: Abdominal location: lower abdomen, unspecified Qualified Code(s): R10.30 - Lower abdominal pain, unspecified Lung cancer Qualifiers: Laterality: right Lung location: lower lobe of lung Qualified Code(s): C34.31 - Malignant neoplasm of lower lobe, right bronchus or lung - Discharge Information Forms: ED Department Discharge Sepsis Event Note - Evaluation Sepsis Screening Result: No Definite Risk - Focused Exam Vital Signs: Vital Signs Temp Pulse Resp BP Pulse Ox 03/13/20 17:33 36.9 C 118 H 20 133/73 98 Date Exam was Performed: 03/13/20 Time Exam was Performed: 17:38 - My Orders Last 24 Hours: My Active Orders 03/13/20 20:38 EKG Documentation Completion [RC] STAT - Assessment/Plan Last 24 Hours: My Active Orders 03/13/20 20:38 EKG Documentation Completion [RC] STAT <Martin Bai - Last Filed: 03/13/20 21:20> Course - Re-Assessments/Exams Free Text/Narrative Re-Assessment/Exam: 03/13/20 19:04 re-exam; pt states leg pain onset this afternoon after vomiting x1 which did help her abd pain. last radiation last Saturday and last chemo 2 weeks ago. 03/13/20 21:[address] Whitaker who kindly admitted pt to observation. Departure - Departure Time of Disposition: 21:20 Condition: Fair Sepsis Event Note - Focused Exam Date Exam was Performed: 03/13/20 Time Exam was Performed: 21:20
[2020-03-13] MEDS ORDERED: Sodium Chloride 0.9% 1,000 ML IV ONE (17:48)
[2020-03-13] MEDS ORDERED: Morphine 2 MG/ML SYRINGE IVPUSH ONE (18:08)
[2020-03-13 18:09] LABS: ANION GAP 16.1 mEq/L (7-13)
[2020-03-13] MEDS ORDERED: HYDROmorphone 1 MG/ML Syringe IVPUSH ONE (18:56)
[2020-03-13] MEDS ORDERED: Morphine 2 MG/ML SYRINGE IVPUSH PRN (22:55)
[2020-03-13] MEDS ORDERED: Lactulose Soln 10 GM/15 ML 30 ML UD Cup PO PRN (22:56)
[2020-03-13] MEDS ORDERED: LIDOCAINE PO PRN (22:58)
[2020-03-13] MEDS ORDERED: NYSTATIN PO PRN (22:58)
[2020-03-13] MEDS ORDERED: DIPHENHYD PO PRN (22:58)
[2020-03-13] MEDS ORDERED: Acetaminophen 325 MG Tab PO PRN (22:58)
[2020-03-13] MEDS ORDERED: Acetaminophen/HYDROcodone 325-5 MG Tab PO PRN (22:58)
[2020-03-13] MEDS ORDERED: Polyethylene Glycol 3350 Powder 17 GM Packet PO SCH (23:00)
[2020-03-13] MEDS ORDERED: Gabapentin 300 MG Cap PO SCH (23:00)
[2020-03-13] MEDS ORDERED: Melatonin 3 MG Tab PO PRN (23:02)
[2020-03-13] MEDS ORDERED: Promethazine 25 MG Tab PO PRN (23:03)
[2020-03-13] MEDS ORDERED: Ondansetron 4 MG Tab.DIS PO PRN (23:03)
[2020-03-13] MEDS ORDERED: Ondansetron 4 MG/2 ML SDV IVPUSH PRN (23:03)
[2020-03-13] MEDS ORDERED: Sodium Chloride 0.9% 10 ML Syringe FLUSH PRN (23:03)
[2020-03-13] MEDS ORDERED: Sodium Chloride 0.9% 1,000 ML IV SCH (23:15)
[2020-03-13] MEDS ORDERED: LORazepam 2 MG/ML SDV IVPUSH PRN (23:34)
[2020-03-13] MEDS ORDERED: traMADol 50 MG Tab PO ONE (23:42)
--- NOTE | 2020-03-13 23:43 | PCM.PN ---
- General Info Date of Service: 03/13/20 Subjective Update: 74-year-old with a history of fibromyalgia, lung cancer with brain metastases Chronic lower extremity pain History of leg swelling Her lower extremity pain has recently been uncontrolled She has been following with Palliative care Hydrocodone was added recently, when that was not sufficient tramadol was given. The patient presented with severe lower extremity pain she is describing right thigh left calf pain No associated motor weakness, no numbness, has constipation Today she tried to take a few times half pill of hydrocodone Did not take tramadol She received IV Dilaudid and morphine in the emergency room with short-term control of pain - Patient Data Vitals - Most Recent: Last Vital Signs Temp 97.8 F 03/13/20 21:53 Pulse 144 H 03/13/20 21:53 Resp 24 H 03/13/20 21:53 BP 94/58 L 03/13/20 21:53 Pulse Ox 98 03/13/20 21:53 Weight - Most Recent: 92 lb 4.8 oz Lab Results Last 24 Hours: Laboratory Results - last 24 hr 03/13/20 03/13/20 03/13/20 Range/Units 17:40 17:40 17:40 WBC 2.0 L (5.0-10.0) 10^3/uL RBC 2.86 L (4.2-5.4) 10^6/uL Hgb 8.5 L D (12.0-16.0) g/dL Hct 25.0 L (37.0-47.0) % MCV 87.4 (80-100) fL MCH 29.7 (27.0-34.0) pg MCHC 34.0 (33.0-35.0) g/dL Plt Count 91 L D (150-450) 10^3/uL Neut % (Auto) 49.3 (42.2-75.2) % Lymph % (Auto) 21.8 (20.5-50.1) % [place] % (Auto) 27.9 H (2-8) % Eos % (Auto) 1.0 (1.0-3.0) % Baso % (Auto) 0.0 (0.0-1.0) % Add Manual Diff Yes Neutrophils % (Manual) 14 L (42-75) % Band Neutrophils % 14 % Lymphocytes % (Manual) 48 (20-50) % Monocytes % (Manual) 13 H (2-8) % Eosinophils % (Manual) 1 (1-3) % Metamyelocytes % 5 Blast Cells % 5 Nucleated RBCs 2 /100WBC Microcytosis 1+ slight Sodium 127 L (136-145) mmol/L Potassium 4.1 (3.5-5.1) mmol/L Chloride 88 L (98-107) mmol/L Carbon Dioxide 27 (21-32) mmol/L Anion Gap 16.1 H (7-13) mEq/L BUN 34 H (7-18) mg/dL Creatinine 1.64 H (0.55-1.02) mg/dL Est Cr Clr Drug Dosing 18.59 mL/min Estimated GFR (MDRD) 31 BUN/Creatinine Ratio 20.7 (No establ ref range) Glucose 79 (74-99) mg/dL Lactic Acid 1.2 (0.4-2.0) mmol/L Calcium 8.3 L (8.5-10.1) mg/dL Total Bilirubin 0.5 (0.2-1.0) mg/dL AST 30 (15-37) U/L ALT 63 H (14-59) U/L Alkaline Phosphatase 306 H (46-116) U/L Troponin I (0.000-0.056) ng/mL B-Natriuretic Peptide 142 H (0-100) pg/ml Total Protein 5.9 L (6.4-8.2) g/dL Albumin 1.7 L (3.4-5.0) g/dL Globulin 4.2 Albumin/Globulin Ratio 0.40 Amylase 14 L (25-115) U/L Lipase 48 L (73-393) U/L /19/20 Range/Units 17:40 WBC (5.0-10.0) 10^3/uL RBC (4.2-5.4) 10^6/uL Hgb (12.0-16.0) g/dL Hct (37.0-47.0) % MCV (80-100) fL MCH (27.0-34.0) pg MCHC (33.0-35.0) g/dL Plt Count (150-450) 10^3/uL Neut % (Auto) (42.2-75.2) % Lymph % (Auto) (20.5-50.1) % [place] % (Auto) (2-8) % Eos % (Auto) (1.0-3.0) % Baso % (Auto) (0.0-1.0) % Add Manual Diff Neutrophils % (Manual) (42-75) % Band Neutrophils % % Lymphocytes % (Manual) (20-50) % Monocytes % (Manual) (2-8) % Eosinophils % (Manual) (1-3) % Metamyelocytes % Blast Cells % Nucleated RBCs /100WBC Microcytosis Sodium (136-145) mmol/L Potassium (3.5-5.1) mmol/L Chloride (98-107) mmol/L Carbon Dioxide (21-32) mmol/L Anion Gap (7-13) mEq/L BUN (7-18) mg/dL Creatinine (0.55-1.02) mg/dL Est Cr Clr Drug Dosing mL/min Estimated GFR (MDRD) BUN/Creatinine Ratio (No establ ref range) Glucose (74-99) mg/dL Lactic Acid (0.4-2.0) mmol/L Calcium (8.5-10.1) mg/dL Total Bilirubin (0.2-1.0) mg/dL AST (15-37) U/L ALT (14-59) U/L Alkaline Phosphatase (46-116) U/L Troponin I < 0.017 (0.000-0.056) ng/mL B-Natriuretic Peptide (0-100) pg/ml Total Protein (6.4-8.2) g/dL Albumin (3.4-5.0) g/dL Globulin Albumin/Globulin Ratio Amylase (25-115) U/L Lipase (73-393) U/L Med Orders - Current: Current Medications Acetaminophen (Tylenol) 650 mg PO BID PRN PRN Reason: Pain Hydrocodone Bitart/Acetaminophen ([place] 325-5 Mg) 1 tab PO Q4H PRN PRN Reason: Pain Amitriptyline HCl (Elavil) 50 mg PO BEDTIME MADY Fluconazole (Diflucan) 100 mg PO DAILY MADY Stop: 03/16/20 09:01 Folic Acid (Folic Acid) 1 mg PO DAILY MADY Gabapentin (Neurontin) 300 mg PO BID MADY Last Admin: 03/13/20 23:29 Dose: 300 mg Heparin Sodium (Porcine) (Heparin Sodium) 5,000 units SUBCUT Q8HR [facility] Sodium Chloride (Normal Saline) 1,000 mls @ 75 mls/hr IV ASDIRECTED [facility] Lactulose (Cephulac) 20 gm PO DAILY PRN PRN Reason: Constipation Lorazepam (Ativan) 1 mg IVPUSH Q4H PRN PRN Reason: Anxiety Melatonin (Melatonin) 3 mg PO BEDTIME PRN PRN Reason: Sleep Last Admin: 03/13/20 23:29 Dose: 3 mg Mometasone Furoate/Formoterol Fumar (Dulera 100-5 Mcg) 2 puff IH BIDRT [facility] Morphine Sulfate (Morphine) 1 mg IVPUSH Q2H PRN PRN Reason: severe pain Last Admin: 03/13/20 23:12 Dose: 1 mg Non-Formulary Medication (Albuterol [Ventolin Hfa]) 2 puff INH Q4HR [facility] Non-Formulary Medication (Diphenhyd/Lidocaine/Nystatin) 5 ml PO QID PRN PRN Reason: Pain mouth sores Ondansetron HCl (Zofran) 4 mg IVPUSH Q6H PRN PRN Reason: Nausea/Vomiting Last Admin: 03/13/20 23:29 Dose: 4 mg Ondansetron HCl (Zofran Odt) 4 mg PO Q6H PRN PRN Reason: nausea, able to take PO Pantoprazole Sodium (Protonix) 40 mg PO BEDTIME [facility] Polyethylene Glycol (Miralax) 17 gm PO DAILY [facility] Last Admin: 03/13/20 23:32 Dose: Not Given Promethazine HCl (Phenergan) 25 mg PO Q6H PRN PRN Reason: nausea, able to take PO Senna/Docusate Sodium (Senna Plus) 1 tab PO BID [facility] Sodium Chloride (Saline Flush) 10 ml FLUSH ASDIRECTED PRN PRN Reason: Keep Vein Open Tramadol HCl (Ultram) 50 mg PO TID [facility] Discontinued Medications Hydromorphone HCl (Dilaudid) 1 mg IVPUSH ONETIME ONE Stop: 03/13/20 18:57 Last Admin: 03/13/20 19:00 Dose: 1 mg Sodium Chloride (Normal Saline) 1,000 mls @ 999 mls/hr IV .BOLUS ONE Stop: 03/13/20 18:48 Last Admin: 03/13/20 17:52 Dose: 999 mls/hr Morphine Sulfate (Morphine) 2 mg IVPUSH ONETIME ONE Stop: 03/13/20 18:09 Last Admin: 03/13/20 18:14 Dose: 2 mg - Exam General: Alert, Oriented, Moderate Distress, Other Neck: Supple Lungs: Decreased Breath Sounds Cardiovascular: Regular Rate (Cachectic), Regular Rhythm GI/Abdominal Exam: Normal Bowel Sounds, Soft, Non-Tender Extremities: No Pedal Edema Skin: Warm, Dry Psy/Mental Status: Alert, Anxious Sepsis Event Note - Evaluation Sepsis Screening Result: No Definite Risk - Focused Exam Vital Signs: Vital Signs Temp Pulse Resp BP Pulse Ox 03/13/20 21:53 97.8 F 144 H 24 H 94/58 L 98 03/13/20 17:33 98.5 F 118 H 20 133/73 98 Date Exam was Performed: 03/13/20 Time Exam was Performed: 23:38 - Problem List & Annotations (1) Anxiety SNOMED Code(s): 21961645 Code(s): F41.9 - ANXIETY DISORDER, UNSPECIFIED Status: Acute Current Visit: Yes (2) Dehydration syndrome SNOMED Code(s): 97315323 Code(s): E86.0 - DEHYDRATION Status: Acute Current Visit: No (3) History of lung cancer SNOMED Code(s): 632992298, 360072848 Code(s): Z85.118 - PERSONAL HISTORY OF MALIGNANT NEOPLASM OF BRONCHUS AND LUNG Status: Acute Current Visit: No (4) Leg pain, bilateral SNOMED Code(s): 90163431 Code(s): M79.604 - PAIN IN RIGHT LEG; M79.605 - PAIN IN LEFT LEG Status: Acute Current Visit: No (5) Pancytopenia due to chemotherapy SNOMED Code(s): 6595918, 209969560 Code(s): D61.810 - ANTINEOPLASTIC CHEMOTHERAPY INDUCED PANCYTOPENIA Status : Acute Current Visit: No - Problem List Review Problem List Initiated/Reviewed/Updated: Yes - My Orders Last 24 Hours: My Active Orders 03/13/20 22:55 Morphine 1 mg IVPUSH Q2H PRN 03/13/20 22:56 Lactulose [Cephulac] 20 gm PO DAILY PRN 03/13/20 22:58 Acetaminophen [Tylenol] 650 mg PO BID PRN Acetaminophen/HYDROcodone [[place] 325-5 MG] 1 tab PO Q4H PRN Diphenhyd/Lidocaine/Nystatin 5 ml PO QID PRN 03/13/20 23:00 Gabapentin [Neurontin] 300 mg PO BID polyethylene glycoL 3350 [MiraLAX] 17 gm PO DAILY 03/13/20 23:02 Melatonin 3 mg PO BEDTIME PRN 03/13/20 23:03 Oxygen Therapy [RC] PRN Up With Assistance [RC] ASDIRECTED VTE/DVT Education [RC] PER UNIT ROUTINE Vital Signs [RC] Q4H Ondansetron [Zofran ODT] 4 mg PO Q6H PRN Ondansetron [Zofran] 4 mg IVPUSH Q6H PRN Promethazine [Phenergan] 25 mg PO Q6H PRN Sodium Chloride 0.9% [Saline Flush] 10 ml FLUSH ASDIRECTED PRN Peripheral IV Insertion Adult [OM.PC] Routine Resuscitation Status Routine 03/13/20 23:04 Antiembolic Hose [OM.PC] Per Unit Routine 03/13/20 23:05 Antiembolic Devices [RC] PER UNIT ROUTINE Peripheral IV Care [RC] . DIRECTED 03/13/20 23:15 Sodium Chloride 0.9% [Normal Saline] 1,000 ml IV ASDIRECTED 03/13/20 23:34 LORazepam [Ativan] 1 mg IVPUSH Q4H PRN 03/13/20 Breakfast Clear Liquid Diet [DIET] 03/14/20 02:00 Albuterol [Ventolin HFA] 2 puff INH Q4HR 03/14/20 05:11 BASIC METABOLIC PANEL,BMP [CHEM] AM CBC W/O DIFF,HEMOGRAM [HEME] AM CREATINE KINASE,CK [CHEM] AM 03/14/20 06:00 Heparin Sodium 5,000 units SUBCUT Q8HR 03/14/20 07:00 Mometasone/Formoterol [Dulera 100-5 MCG] 2 puff IH BIDRT 03/14/20 09:00 Docusate Sodium/Sennosides [Senna Plus] 1 tab PO BID Fluconazole [Diflucan] 100 mg PO DAILY Folic Acid 1 mg PO DAILY traMADol [Ultram] 50 mg PO TID 03/14/20 21:00 Amitriptyline [Elavil] 50 mg PO BEDTIME Pantoprazole [ProTONIX] 40 mg PO BEDTIME - Plan Plan:: History of right lung adenocarcinoma with brain metastases associated with cancer related pain in lower extremities. She has been on chemotherapy and radiation therapy. The patient has been following with palliative care Has been taking hydrocodone but it was not controlling the leg pain. she was suggested to start tramadol. She also has a history of hyponatremia and has been getting IV fluids at the cancer center. Leg pain This has been acute on chronic No DVT on repeat ultrasounds No neurological deficit associated with this Also has a history of fibromyalgia Use Tylenol for mild pain, hydrocodone for moderate, IV morphine for severe pain Increase Neurontin Continue amitriptyline Anxiety Continue amitriptyline, add Ativan as needed Pancytopenia due to chemotherapy Will follow blood counts Hyponatremia with dehydration We will give IV fluids Hold Lasix and spironolactone Follow electrolytes and renal function Constipation Use Senokot, lactulose, MiraLAX dvt prophylaxis sq heparin CODE STATUS discussed Currently the patient is in pain and anxious At this point she says she wants CPR attempted
[2020-03-14] MEDS ORDERED: Albuterol 6.7 GM Inhaler INH SCH (02:00)
[2020-03-14] MEDS ORDERED: Naloxone 2 MG/2 ML Syringe IVPUSH ONE (03:09)
[2020-03-14] MEDS ORDERED: Morphine 2 MG/ML SYRINGE IVPUSH PRN (03:12)
[2020-03-14 03:20] VITALS: BP 55/20; PULSE 129
--- NOTE | 2020-03-14 03:21 | PCM.SN ---
- Free Text/Narrative Note: Called to see patient was minimally responsive Blood pressure was 50s, oxygen saturation was 80s On examination the patient had slow respiratory rate, unresponsive Narcan given The patient regained responsiveness almost immediately She was restless, uncomfortable. Normal saline bolus was given. Blood pressure came back to the 100 systolic. Daughter arrived. Discussed prognosis, history. Daughter was very clear that she and family has decided in the past that they would not want any resuscitation, intubation, BiPAP. Discussed with respiratory therapist, the previously ordered ABG will be canceled given the change in goals of care. Daughter thought that the patient would only want comfort measures. We will change CODE STATUS to comfort care. Daughter will stay the patient overnight Use atropine, morphine, Ativan as needed. Daughter wished to continue IV fluids for now. A few minutes later the patients respiratory rate slowed down. After a few inguinal breathing the patient peacefully . TeleHealth - TeleHealth Patient Service Facility: [facility]: [facility] Informed Consent: Telemedicine Audio/Visual Informed Consent: The risks, benefits, and alternatives to the telehealth visit were explained to the patient and the patient consented to this modality of care. The telehealth visit was carried out via a secure, web-based conferencing system. This telemedicine service was a real-time, two-way interactive video and communication between the patient and the provider. All the parties involved were identified and approved by the patient prior to the visit. Any physical exam was assisted by the patient. Unless noted otherwise, the provider was located at their usual clinic location , and the patient was at their place of residence. Patient identity was confirmed by having the patient state their name and date of . All communications with the patient (verbal, audiovisual, and written) were documented in the patients medical record per documentation standards.
--- NOTE | 2020-03-14 03:26 | PCM.DCSUM1 ---
Discharge Summary - Hospital Course Free Text/Narrative:: 74-year-old with history of metastatic lung cancer, anxiety, fibromyalgia, chronic pain. The patient presented with uncontrolled pain. She was noted to have pancytopenia on admission due to chemotherapy. Dehydration noted. Constipation was concern. The patient was anxious and uncomfortable. Anxiety and pain was treated. Subsequently the patient was becoming less responsive. Patient's daughter arrived. Goals of care was changed to Comfort Care only. Within short period of time the patient peacefully. . Diagnosis: Stroke: No - Discharge Data Discharge Date: 03/14/20 Discharge Disposition: 20 Condition: Good - Referral to Home Health Primary Care Physician: PCP Unobtainable - Discharge Diagnosis/Problem(s) (1) Anxiety SNOMED Code(s): 28313402 ICD Code: F41.9 - ANXIETY DISORDER, UNSPECIFIED Status: Acute Current Visit: Yes (2) Dehydration syndrome SNOMED Code(s): 36016203 ICD Code: E86.0 - DEHYDRATION Status: Acute Current Visit: No (3) History of lung cancer SNOMED Code(s): 261606492, 163078832 ICD Code: Z85.118 - PERSONAL HISTORY OF MALIGNANT NEOPLASM OF BRONCHUS AND LUNG Status: Acute Current Visit: No (4) Leg pain, bilateral SNOMED Code(s): 33720120 ICD Code: M79.604 - PAIN IN RIGHT LEG; M79.605 - PAIN IN LEFT LEG Status: Acute Current Visit: No (5) Pancytopenia due to chemotherapy SNOMED Code(s): 6884112, 006523878 ICD Code: D61.810 - ANTINEOPLASTIC CHEMOTHERAPY INDUCED PANCYTOPENIA Status : Acute Current Visit: No (6) Acute hypoxemic respiratory failure SNOMED Code(s): 839613479 ICD Code: J96.01 - ACUTE RESPIRATORY FAILURE WITH HYPOXIA Status: Acute Current Visit: Yes - Discharge Plan *PRESCRIPTION DRUG MONITORING PROGRAM REVIEWED*: Not Applicable *COPY OF PRESCRIPTION DRUG MONITORING REPORT IN PATIENT DANIELA: Not Applicable Home Medications: Home Meds Amitriptyline [Elavil] 50 mg PO BEDTIME 04/09/14 [History] Gabapentin [Neurontin] 300 mg PO BEDTIME 12/23/17 [History] Melatonin 5 mg PO BEDTIME 12/23/17 [History] Acetaminophen [Tylenol Extra Strength] 650 mg PO BID PRN 12/31/18 [History] Cholecalciferol (Vitamin D3) [Vitamin D3] 3,000 units PO DAILY 12/31/18 [History ] Esomeprazole Magnesium [Nexium] 20 mg PO DAILY 12/31/18 [History] Fluticasone/Vilanterol [Breo Ellipta 100-25 MCG Inhalation Kit] 1 puff INH DAILY 12/31/18 [History] Gabapentin [Neurontin] 100 mg PO BEDTIME 12/31/18 [History] Ipratropium/Albuterol Sulfate [Iprat-Albut 0.5-3(2.5) mg/3 ml] 3 ml INH Q4H PRN 12/31/18 [History] Naproxen Sodium [Aleve] 220 mg PO BID PRN 01/21/20 [History] Albuterol [Ventolin HFA] 2 puff INH Q4HR 03/07/20 [History] Diphenhyd/Lidocaine/Nystatin [First-Bxn Mouthwash] 5 - 10 ml MM QID PRN [History] Fluconazole [Diflucan] 100 mg PO DAILY 03/07/20 [History] Furosemide 20 mg PO ASDIRECTED 03/07/20 [History] Hydrocodone/Acetaminophen [Hydrocodon-Acetaminophen 5-325] 0.5 - 1 tab PO Q4HR PRN 03/07/20 [History] Ondansetron [Zofran] 8 mg PO Q8HR PRN 03/07/20 [History] Prochlorperazine [Compazine] 10 mg PO Q6HR PRN 03/07/20 [History] Spironolactone 50 mg PO DAILY 03/07/20 [History] Folic Acid 1 mg PO DAILY 03/13/20 [History] Nystatin [Mycostatin] 5 ml PO QID 03/13/20 [History] - Discharge Summary/Plan Comment DC Time >30 min.: No - Patient Data Vitals - Most Recent: Last Vital Signs Temp 97.8 F 03/13/20 21:53 Pulse 129 H 03/14/20 02:25 Resp 36 H 03/14/20 02:25 BP 55/20 L 03/14/20 02:25 Pulse Ox 87 L 03/14/20 02:25 Weight - Most Recent: 92 lb 4.8 oz Lab Results - Last 24 hrs: Laboratory Results - last 24 hr 03/13/20 03/13/20 03/13/20 Range/Units 17:40 17:40 17:40 WBC 2.0 L (5.0-10.0) 10^3/uL RBC 2.86 L (4.2-5.4) 10^6/uL Hgb 8.5 L D (12.0-16.0) g/dL Hct 25.0 L (37.0-47.0) % MCV 87.4 (80-100) fL MCH 29.7 (27.0-34.0) pg MCHC 34.0 (33.0-35.0) g/dL Plt Count 91 L D (150-450) 10^3/uL Neut % (Auto) 49.3 (42.2-75.2) % Lymph % (Auto) 21.8 (20.5-50.1) % [place] % (Auto) 27.9 H (2-8) % Eos % (Auto) 1.0 (1.0-3.0) % Baso % (Auto) 0.0 (0.0-1.0) % Add Manual Diff Yes Neutrophils % (Manual) 14 L (42-75) % Band Neutrophils % 14 % Lymphocytes % (Manual) 48 (20-50) % Monocytes % (Manual) 13 H (2-8) % Eosinophils % (Manual) 1 (1-3) % Metamyelocytes % 5 Blast Cells % 5 Nucleated RBCs 2 /100WBC Microcytosis 1+ slight Sodium 127 L (136-145) mmol/L Potassium 4.1 (3.5-5.1) mmol/L Chloride 88 L (98-107) mmol/L Carbon Dioxide 27 (21-32) mmol/L Anion Gap 16.1 H (7-13) mEq/L BUN 34 H (7-18) mg/dL Creatinine 1.64 H (0.55-1.02) mg/dL Est Cr Clr Drug Dosing 18.59 mL/min Estimated GFR (MDRD) 31 BUN/Creatinine Ratio 20.7 (No establ ref range) Glucose 79 (74-99) mg/dL Lactic Acid 1.2 (0.4-2.0) mmol/L Calcium 8.3 L (8.5-10.1) mg/dL Total Bilirubin 0.5 (0.2-1.0) mg/dL AST 30 (15-37) U/L ALT 63 H (14-59) U/L Alkaline Phosphatase 306 H (46-116) U/L Troponin I (0.000-0.056) ng/mL B-Natriuretic Peptide 142 H (0-100) pg/ml Total Protein 5.9 L (6.4-8.2) g/dL Albumin 1.7 L (3.4-5.0) g/dL Globulin 4.2 Albumin/Globulin Ratio 0.40 Amylase 14 L (25-115) U/L Lipase 48 L (73-393) U/L / Range/Units 17:40 WBC (5.0-10.0) 10^3/uL RBC (4.2-5.4) 10^6/uL Hgb (12.0-16.0) g/dL Hct (37.0-47.0) % MCV (80-100) fL MCH (27.0-34.0) pg MCHC (33.0-35.0) g/dL Plt Count (150-450) 10^3/uL Neut % (Auto) (42.2-75.2) % Lymph % (Auto) (20.5-50.1) % [place] % (Auto) (2-8) % Eos % (Auto) (1.0-3.0) % Baso % (Auto) (0.0-1.0) % Add Manual Diff Neutrophils % (Manual) (42-75) % Band Neutrophils % % Lymphocytes % (Manual) (20-50) % Monocytes % (Manual) (2-8) % Eosinophils % (Manual) (1-3) % Metamyelocytes % Blast Cells % Nucleated RBCs /100WBC Microcytosis Sodium (136-145) mmol/L Potassium (3.5-5.1) mmol/L Chloride (98-107) mmol/L Carbon Dioxide (21-32) mmol/L Anion Gap (7-13) mEq/L BUN (7-18) mg/dL Creatinine (0.55-1.02) mg/dL Est Cr Clr Drug Dosing mL/min Estimated GFR (MDRD) BUN/Creatinine Ratio (No establ ref range) Glucose (74-99) mg/dL Lactic Acid (0.4-2.0) mmol/L Calcium (8.5-10.1) mg/dL Total Bilirubin (0.2-1.0) mg/dL AST (15-37) U/L ALT (14-59) U/L Alkaline Phosphatase (46-116) U/L Troponin I < 0.017 (0.000-0.056) ng/mL B-Natriuretic Peptide (0-100) pg/ml Total Protein (6.4-8.2) g/dL Albumin (3.4-5.0) g/dL Globulin Albumin/Globulin Ratio Amylase (25-115) U/L Lipase (73-393) U/L Med Orders - Current: Current Medications Acetaminophen (Tylenol) 650 mg PO BID PRN PRN Reason: Pain Hydrocodone Bitart/Acetaminophen ([place] 325-5 Mg) 1 tab PO Q4H PRN PRN Reason: Pain Albuterol (Proventil Hfa) 0 gm INH Q4H PENDING SALE TO [facility] Last Admin: 03/14/20 02:22 Dose: Not Given Amitriptyline HCl (Elavil) 50 mg PO BEDTIME MADY Gabapentin (Neurontin) 300 mg PO BID [facility]END[facility] TO [facility] Last Admin: 03/13/20 23:29 Dose: 300 mg Heparin Sodium (Porcine) (Heparin Sodium) 5,000 units SUBCUT Q8HR [facility]ENDING SALE TO [facility] Sodium Chloride (Normal Saline) 1,000 mls @ 75 mls/hr IV ASDIRECTED [facility]ENDING SALE TO [facility] Last Admin: 03/13/20 23:51 Dose: 75 mls/hr Lactulose (Cephulac) 20 gm PO DAILY PRN PRN Reason: Constipation Lorazepam (Ativan) 1 mg IVPUSH Q4H PRN PRN Reason: Anxiety Last Admin: 03/14/20 00:07 Dose: 1 mg Melatonin (Melatonin) 3 mg PO BEDTIME PRN PRN Reason: Sleep Last Admin: 03/13/20 23:29 Dose: 3 mg Morphine Sulfate (Morphine) 1 mg IVPUSH Q1H PRN PRN Reason: severe pain Naloxone HCl (Narcan) 0.4 mg IVPUSH ONETIME ONE Stop: 03/14/20 03:10 Non-Formulary Medication (Diphenhyd/Lidocaine/Nystatin) 5 ml PO QID PRN PRN Reason: Pain mouth sores Ondansetron HCl (Zofran) 4 mg IVPUSH Q6H PRN PRN Reason: Nausea/Vomiting Last Admin: 03/13/20 23:29 Dose: 4 mg Ondansetron HCl (Zofran Odt) 4 mg PO Q6H PRN PRN Reason: nausea, able to take PO Pantoprazole Sodium (Protonix) 40 mg PO BEDTIME PENDING SALE TO [facility] Polyethylene Glycol (Miralax) 17 gm PO DAILY [facility] Last Admin: 03/13/20 23:32 Dose: Not Given Promethazine HCl (Phenergan) 25 mg PO Q6H PRN PRN Reason: nausea, able to take PO Senna/Docusate Sodium (Senna Plus) 1 tab PO BID PENDING SALE TO [facility] Sodium Chloride (Saline Flush) 10 ml FLUSH ASDIRECTED PRN PRN Reason: Keep Vein Open Discontinued Medications Fluconazole (Diflucan) 100 mg PO DAILY [facility]END[facility] TO [facility] Stop: 03/16/20 09:01 Folic Acid (Folic Acid) 1 mg PO DAILY PENDING SALE TO [facility] Hydromorphone HCl (Dilaudid) 1 mg IVPUSH ONETIME ONE Stop: 03/13/20 18:57 Last Admin: 03/13/20 19:00 Dose: 1 mg Sodium Chloride (Normal Saline) 1,000 mls @ 999 mls/hr IV .BOLUS ONE Stop: 03/13/20 18:48 Last Admin: 03/13/20 17:52 Dose: 999 mls/hr Mometasone Furoate/Formoterol Fumar (Dulera 100-5 Mcg) 2 puff IH BIDRT PENDING SALE TO [facility] Morphine Sulfate (Morphine) 2 mg IVPUSH ONETIME ONE Stop: 03/13/20 18:09 Last Admin: 03/13/20 18:14 Dose: 2 mg Morphine Sulfate (Morphine) 1 mg IVPUSH Q2H PRN PRN Reason: severe pain Last Admin: 03/13/20 23:12 Dose: 1 mg Tramadol HCl (Ultram) 50 mg PO TID PENDING SALE TO [facility] Tramadol HCl (Ultram) 50 mg PO ONETIME ONE Stop: 03/13/20 23:43 Last Admin: 03/14/20 00:06 Dose: 50 mg
[2020-03-14] MEDS ORDERED: Heparin Sodium 5,000 Units/ML Vial SUBCUT SCH (06:00)
[2020-03-14] MEDS ORDERED: Formoterol/Mometasone 100-5 MCG 8.8 GM Inhaler IH SCH (07:00)
[2020-03-14] MEDS ORDERED: traMADol 50 MG Tab PO SCH (09:00)
[2020-03-14] MEDS ORDERED: Non-Formulary Medication 1 Each (Fluticasone/Vilanterol [Breo Ellipta 100-25 Mcg Inhalatio INH SCH (09:00)
[2020-03-14] MEDS ORDERED: Fluconazole 100 MG Tab PO SCH (09:00)
[2020-03-14] MEDS ORDERED: Folic Acid 1 MG Tab PO SCH (09:00)
[2020-03-14] MEDS ORDERED: Amitriptyline 25 MG Tab PO SCH (21:00)
[2020-03-14] MEDS ORDERED: Pantoprazole 40 MG Tab.CR PO SCH (21:00)
== END 2020-03-14 05:10 | disposition expired ==
LOC: DL.ED 17:00 → DL.MS 21:20 → DL.ED 21:27
PROVIDERS: ADMIT Internal Medicine; ATTEND Internal Medicine
DX: E86.0 Dehydration (principal); J96.01 Acute respiratory failure with hypoxia; D61.810 Antineoplastic chemotherapy induced pancytopenia; C34.31 Malignant neoplasm of lower lobe, right bronchus or lung; C79.31 Secondary malignant neoplasm of brain; R10.30 Lower abdominal pain, unspecified; K59.00 Constipation, unspecified; F41.9 Anxiety disorder, unspecified; E87.1 Hypo-osmolality and hyponatremia; G89.3 Neoplasm related pain (acute) (chronic); M79.605 Pain in left leg; M79.604 Pain in right leg; J44.9 Chronic obstructive pulmonary disease, unspecified; K21.9 Gastro-esophageal reflux disease without esophagitis; Z51.5 Encounter for palliative care; Z79.899 Other long term (current) drug therapy
CPT/HCPCS: 36415; 51702; 74176; 80053; 82150; 83605; 83690; 83880; 84484; 85025; 87040; 93005; 93970; 96361; 96374; 96375; 96376; 99284; 99285; A9270; G0378; J1170; J2060; J2270; J2310; J2405; J7030; 99217; 99218